=== PATIENT | female | born 1990 | race Caucasian/White ===

== ENCOUNTER 2018-05-06 13:20 | Emergency (ER) | payer OTHER ==
[~2018-05-06] VITALS: Ht 165.1 cm; Wt 59.0 kg
[~2018-05-06 13:20] MED LIST: DESYREL50 MG; LORTAB 5 MG/5001 TA1 PO; MINOCYCLINE HC100 M2; WELLBUTRIN SR150 MG; ZOLOFT 50 MG TA50 M1
[2018-05-06] MEDS ORDERED: PROZAC20 MG PO (13:33)
[2018-05-06] MEDS ORDERED: NEURONTIN 300300 M1 PO (13:34)
[2018-05-06] MEDS ORDERED: CLONAZEPAM 0.50.5 M1 PO (13:34)
[2018-05-06 16:25] VITALS: BP 123/82
== END 2018-05-06 16:27 | disposition home or self-care (01) ==
LOC: M.ERS 13:20
DX: M79.641 Pain in right hand (principal); R07.81 Pleurodynia; R42 Dizziness and giddiness; F41.9 Anxiety disorder, unspecified; F32.9 Major depressive disorder, single episode, unspecified; Z88.0 Allergy status to penicillin; Z90.49 Acquired absence of other specified parts of digestive tract; W18.39XA Other fall on same level, initial encounter; Y93.89 Activity, other specified; Y92.89 Other specified places as the place of occurrence of the external cause; Y99.8 Other external cause status

== ENCOUNTER 2020-11-29 10:34 | Emergency (ER) | payer MEDICAID ==
[~2020-11-29] VITALS: Ht 165.1 cm; Wt 61.2 kg
[~2020-11-29 10:34] MED LIST changes: +CLONAZEPAM 0.50.5 M1 PO; +NEURONTIN 300300 M1 PO; +PROZAC20 MG PO
[2020-11-29] MEDS ORDERED: XANAX 0.5 MG0.5 M1 PO (11:05)
[2020-11-29] MEDS ORDERED: IBUPROFEN 800800 M1 PO (12:09)
[2020-11-29] MEDS ORDERED: NORCO5 PO (12:09)
[2020-11-29 12:30] VITALS: BP 112/70
== END 2020-11-29 12:30 | disposition home or self-care (01) ==
LOC: M.ERS 10:34
DX: M25.572 Pain in left ankle and joints of left foot (principal); Z88.0 Allergy status to penicillin; Z79.899 Other long term (current) drug therapy; Z90.49 Acquired absence of other specified parts of digestive tract; X50.1XXA Overexertion from prolonged static or awkward postures, initial encounter; Y93.89 Activity, other specified; Y92.89 Other specified places as the place of occurrence of the external cause; Y99.9 Unspecified external cause status